=== PATIENT | female | born 1985 | race Caucasian/White ===

== ENCOUNTER 2019-04-15 10:25 | Inpatient (IN) | payer OTHER ==
[2019-04-15] MEDS ORDERED: CITRIC ACID/SODIUM CITRATE 30 ML UNIT-DOSE CUP PO ONE (11:29)
--- NOTE | 2019-04-15 11:35 | HP ---
Past Medical History - Admission Chief Complaint: Scheduled RLTCS History of Present Illness: 33yo @ 39wks here for scheduled RLTCS, BERNARDINO 04/19/2019, desires permanent sterilization No VB/LOF. No ctx. 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 No: Ascites, Cancer, Constipation, Crohn's Disease, Diverticulitis, Diverticulosis, Esophageal Varices, GERD, GI Bleed, Hemorrhoids, Hiatal Hernia, Inflamatory Bowel Disease, Irritable Bowel Disease, Pancreatitis, Peptic Ulcer Disease, Ulcerative Colitis Hepatobiliary: Yes: Cholelithiasis Renal/: Yes: UTI (rx po macrobid) Reproductive: No: Ectopic , Endometriosis, Fibroids, PID, Polycystic Ovary Syndrome, Postmenopausal, Other ...: 3 ...Para: 2 ...Term: 1 ...: 1 ...EDC by Dates: 04/19/19 Heme/Onc: Yes: Anemia Rheumatology: Yes: Rheumatoid Arthritis Endocrine: Yes: Hypothyroidism - Past Surgical History Past Surgical History: Yes: [facility], [facility] Hx Myomectomy: No Hx Transabdominal Cerclage: No - Smoking History Smoking history: Never smoked Have you smoked in the past 12 months: No - Alcohol/Substance Use Hx Alcohol Use: No History of Substance Use: reports: None - Social History Usual Living Arrangement: Yes: With Spouse Do you think of yourself as: Straight/Heterosexual ADL: Independent Occupation: unemployed History of Recent Travel: No Home Medications - Allergies Allergies/Adverse Reactions: Allergies Allergy/AdvReac Type Severity Reaction Status Date / Time No Known Allergies Allergy Verified 03/21/15 23:10 - Home Medications Home Medications: Ambulatory Orders Hydroxychloroquine Sulfate 200 mg PO DAILY 03/21/15 Levothyroxine [Synthroid -] 50 mcg PO DAILY 03/21/15 Prednisone 5 mg PO ASDIR 03/21/15 Bacitracin - [Bacitracin Topical Ointment -] 1 applic TP BID #1 tube 03/23/15 Clindamycin [Cleocin -] 300 mg PO TID #30 capsule 03/23/15 levoFLOXacin [Levaquin -] 500 mg PO DAILY #10 tablet 03/23/15 Review of Systems - Review of Systems Cardiovascular: denies: No Symptoms, Chest Pain, Edema, Palpitations, Shortness of Breath, Other Respiratory: denies: No Symptoms, Cough, Exercise Intolerance, Hemoptysis, Orthopnea, PND, Snoring, SOB, SOB on Exertion, Wheezing, Other Gastrointestinal: denies: No Symptoms, Abdominal Pain, Bloating, Constipation, Diarrhea, Dysphagia, Indigestion, Melena, Nausea, Rectal Bleeding, Vomiting, Vomiting Blood, Other Genitourinary: denies: No Symptoms, Burning, Discharge, Dysuria, Flank Pain, Frequency, Hematuria, Incontinence, Lesions, Menses, Pain, Testicular Mass, Testicular Pain, Testicular Swelling, Urgency, Vaginal Bleeding, Other Physical Exam - Maternity - Abdominal Exam/OB Number of Fetuses: Single Presentation: Vertex Contractions: No Category: I Accelerations: Non-Uniform - Vaginal Exam/OB Vaginal Bleediing: No - Physical Exam Edema: No Assessment/Plan 33yo @ 39+wks here for scheduled RTLCS, BTL Admit to L&D NPO, IVFs Ancef SCDs Mtz Risk of procedure reviewed, including bleeding, infection, injury (bladder, bowel, adnexa, vessels, nerves). All questions answered, consents signed. Marylu Chua MD
[2019-04-15] MEDS: ELECTROLYTE-148 SOLN 1,000 ML IV SCH ×2 (12:00→15:13)
[2019-04-15 12:42] VITALS: BMI 41.0
[2019-04-15] MEDS ORDERED: OXYTOCIN 20 UNITS in 0.9% NS 40 UNIT/2,000 ML INFUS.BAG IV ONE (12:50)
[2019-04-15] MEDS ORDERED: ceFAZolin SODIUM 1 GM VIAL ONE (12:52)
[2019-04-15] MEDS ORDERED: morphine SULFATE/PF 0.5 MG/ML (2cc Syringe - QUVA) ONE (12:52)
[2019-04-15] MEDS ORDERED: DEXAMETHASONE SOD PHOSPHATE 4 MG/1 ML VIAL ONE (13:35)
[2019-04-15] MEDS ORDERED: KETOROLAC TROMETHAMINE 30 MG/1 ML VIAL ONE (14:15)
[2019-04-15] MEDS: OXYTOCIN 20 UNITS in 0.9% NS 20 UNIT/1,000 ML INFUS.BAG IV SCH ×2 (14:20→21:00)
[2019-04-15] MEDS ORDERED: IBUPROFEN 800 MG/8 ML IJ IVPB PRN (14:24)
[2019-04-15] MEDS ORDERED: oxyCODONE HCL 5 MG TABLET PO PRN (14:24)
[2019-04-15] MEDS ORDERED: METHYLERGONOVINE MALEATE 0.2 MG/1 ML AMP IM PRN (14:24)
--- NOTE | 2019-04-15 14:24 | OP ---
Operative Note - Note: Operative Date: 04/15/19 Pre-Operative Diagnosis: 39 week , 2 prior C/S, desires elective Repeat C/S, desires permanent sterilization Operation: Repeat Low Transverse , Bilateral Tubal Ligation Findings: VFI, KARI, no nuchal, no meconium, Apgars 9/9. Weight pending. Normal tubes and ovaries bilaterally Post-Operative Diagnosis: Same as Pre-op Surgeon: Mell Chua Medical Sales Representative: Ernesto Robbins Anesthesia: Spinal Estimated Blood Loss (mls): 700 Drains, Volume Out (mls): 200 (clear urine) Operative Report Dictated: Yes
[2019-04-15] MEDS ORDERED: ONDANSETRON 4 MG/2 ML VIAL IVPUSH PRN (14:34)
--- NOTE | 2019-04-15 20:19 | OP ---
DATE OF OPERATION: 04/15/2019 PREOPERATIVE DIAGNOSIS: A 39-week , 2 prior sections, desires elective repeat section, desires permanent sterilization. PROCEDURE: Repeat low transverse section, bilateral tubal ligation. ANESTHESIA: Spinal. SURGEON: Mell Chua MD ENGINE TESTER: JHOANA Rangel ESTIMATED BLOOD LOSS: 700. INTRAVENOUS FLUIDS: Per Anesthesia record. URINE OUTPUT: Clear urine 200 mL at the end of the procedure. FINDINGS: Viable female , KARI position. No nuchal. No meconium. Apgars 9 and 9. Weight pending. Normal tubes and ovaries bilaterally. COMPLICATIONS: None. CONDITION: Stable to recovery room. NATURE OF THE PROCEDURE: After the appropriate consents were signed, patient was taken to the operating room. Spinal anesthesia was administered. She was placed in supine position. Mtz catheter had been inserted prior to entry into the operating room. The abdomen was prepped and draped in normal sterile fashion. Timeout was performed, confirming correct patient and procedure. Pfannenstiel incision was made through the prior incisions and carried through to the underlying layers until the fascia was nicked in the midline. The fascia was then extended laterally with the Riojas scissors. Attention was then paid to the inferior aspect of the fascia, which was grasped with Zechariah clamps, tented upwards, and the rectus muscle was dissected off bluntly and with the Riojas scissors. Attention was then paid to the superior aspect which was taken down in a similar fashion. The rectus muscles were sharply in the midline with the scalpel. Peritoneum was entered with the Metzenbaum scissors after transilluminating a clear space for entry. Peritoneum was then extended manually and with the Bovie. Bladder blade was then inserted. The bladder reflection was then nicked in the midline and extended laterally with the Metzenbaum scissors. Bladder flap was then created digitally. Bladder blade was reinserted. The uterus was then incised in a low transverse fashion. Clear amniotic fluid was noted. The infant's head was delivered without difficulty as were the remaining shoulder and body. The 's cord was then clamped and cut. The infant handed off to the awaiting pediatric staff. The uterus was cleared manually of the placenta and clot and debris. Uterus was then exteriorized. The hysterotomy was closed in a single, imbricating, vertical layer with a 0 Vicryl with good hemostasis. The patient's left hysterotomy had to be reinforced to control hemostasis. Attention was then paid to the adnexa for tubal sterilization. The patient's right fallopian tube was grasped with a [place] clamp in the isthmic portion. The tube was inspected down to its fimbriated edges and noted to be normal. Using the 0 plain suture, the tube was then ligated in the modified Sherrell fashion. The tubal stumps were cauterized with the cautery. Attention was then paid to the patient's left fallopian tube which was then also grasped with a [place] in the isthmic portion. Fimbriated edges appeared to be normal. The left fallopian tube was then suture ligated with a 0 plain in the modified Sherrell fashion. Tubal stumps were removed and then cauterized with good hemostasis. Hysterotomy was then re-inspected, noted to be hemostatic. The uterus was returned to the abdominal cavity. Bleeding was noted, and the uterus was then re-exteriorized again. The patient's right fallopian tube stump was noted to be bleeding and was made hemostatic with another 0 plain suture for good hemostasis. The left fallopian tube stump was re-inspected, noted to be hemostatic. Uterus was then returned back to the abdominal cavity. The hysterotomy was re-inspected, noted to be normal. The tubal stumps on both the right and left were re-inspected and noted to be hemostatic. The rectus muscles were reapproximated with a 2-0 chromic and a 0 Vicryl. The fascia was reapproximated with a 1-0 Vicryl. Subcutaneous layer was closed with a 2-0 plain. Skin was closed with a 3-0 Biosyn. Sponge, lap, needle counts were correct x3. The patient did receive Ancef at the start of the procedure. She was taken from the operating room to the recovery area in stable condition. MD KATHLEEN HICKS/[id number]
[2019-04-15] MEDS: ACETAMINOPHEN 325 MG TABLET (FP) PO PRN (23:49)
[2019-04-16 07:18] LABS: BASO % 0.3 % (0-2.0); EOS % 0.2 % (0-4.5); HEMATOCRIT 27.7 % (32.4-45.2); HEMOGLOBIN 9.5 GM/dL (10.7-15.3); LYMPH % 25.2 % (8-40); MCH 32.7 pg (25.7-33.7); MCHC 34.2 g/dl (32.0-36.0); MEAN CELL VOLUME 95.4 fl (80-96); MEAN PLT VOLUME 9.5 fl (7.5-11.1); MONO % 5.8 % (3.8-10.2); NEUT % 68.5 % (42.8-82.8); PLATELET COUNT 182 K/MM3 (134-434); RDW 15.1 % (11.6-15.6); WHITE BLOOD COUNT 8.7 K/mm3 (4.0-10.0)
--- NOTE | 2019-04-16 08:53 | PN ---
Post Progress Note - Subjective Subjective: Patient is doing well, ambulating, honeycutt in place, not yet ambulating, lochia decreased Post Day: 1 Type of Delivery: Repeat C/S Vital Signs: Vital Signs Temperature 98.6 F 04/16/19 06:00 Pulse Rate 76 04/16/19 06:00 Respiratory Rate 20 04/16/19 08:00 Blood Pressure 91/58 L 04/16/19 06:00 O2 Sat by Pulse Oximetry (%) 100 04/15/19 15:15 Breast Exam: Yes: Other (deferred) Uterus: Yes: Fundus Firm Incision: Yes: Sutures intact (dressing re ) Abdomen/GI: Yes: Abdomen soft Lochia: Yes: Serosa Lochia, amount: Moderate Extremities: Yes: Calves non-tender Activity: Ambulating, Other - Labs Labs: CBC WBC 8.7 K/mm3 (4.0-10.0) 04/16/19 06:40 RBC 2.90 M/mm3 (3.60-5.2) L 04/16/19 06:40 Hgb 9.5 GM/dL (10.7-15.3) L 04/16/19 06:40 Hct 27.7 % (32.4-45.2) L D 04/16/19 06:40 MCV 95.4 fl (80-96) 04/16/19 06:40 MCH 32.7 pg (25.7-33.7) 04/16/19 06:40 MCHC 34.2 g/dl (32.0-36.0) 04/16/19 06:40 RDW 15.1 % (11.6-15.6) 04/16/19 06:40 Plt Count 182 K/MM3 (134-434) 04/16/19 06:40 MPV 9.5 fl (7.5-11.1) 04/16/19 06:40 Absolute Neuts (auto) 6.0 K/mm3 (1.5-8.0) 04/16/19 06:40 Neutrophils % 68.5 % (42.8-82.8) 04/16/19 06:40 Lymphocytes % 25.2 % (8-40) 04/16/19 06:40 Monocytes % 5.8 % (3.8-10.2) 04/16/19 06:40 Eosinophils % 0.2 % (0-4.5) 04/16/19 06:40 Basophils % 0.3 % (0-2.0) 04/16/19 06:40 Nucleated RBC % 0 % (0-0) 04/16/19 06:40 Assessment/Plan POD # 1 in stable condition -Encourage ambulation -COntinue pp/post-op care
[2019-04-16] MEDS: ACETAMINOPHEN 325 MG TABLET (FP) PO PRN (10:13)
[2019-04-16] MEDS: IBUPROFEN 600 MG TABLET (FP) PO PRN (10:13)
--- NOTE | 2019-04-16 10:18 | PN ---
Progress Note (short form) - Note Progress Note: Anesthesia Post Op Note Pt seen s/p spinal for c/section Pt awake alert denies h/a, n/v Pt reports good pain control + puritis - instructed to request benedryl Ambulating well, no urinary retention VSS no apparent anesthesia complications David Edmondson.
[2019-04-16] MEDS ORDERED: BISACODYL 10 MG SUPP.RECT RC PRN (14:24)
[2019-04-17] MEDS: SIMETHICONE 80 MG TAB.CHEW (FP) PO PRN ×4 (01:54→20:16)
[2019-04-17] MEDS: IBUPROFEN 600 MG TABLET (FP) PO PRN ×4 (01:54→20:16)
[2019-04-17] MEDS: ACETAMINOPHEN 325 MG TABLET (FP) PO PRN ×4 (01:54→20:15)
--- NOTE | 2019-04-17 08:25 | PN ---
Post Progress Note - Subjective Subjective: c/o pain scale 6 or 7/10 voiding without problem bm not done Post Day: 2 Type of Delivery: Repeat C/S Vital Signs: Vital Signs Temperature 98.3 F 04/16/19 21:59 Pulse Rate 75 04/16/19 21:59 Respiratory Rate 18 04/16/19 21:59 Blood Pressure 107/54 L 04/16/19 21:59 O2 Sat by Pulse Oximetry (%) 100 04/15/19 15:15 Breast Exam: Yes: Soft, Other (BF ). No: Engorged Uterus: Yes: Fundus Firm, Fundus below umbilicus Incision: Yes: Sutures intact (steri strips intact , underneath dry blood stains seen ). No: Redness, Oozing Abdomen/GI: Yes: Abdomen soft, Passing flatus (bm not done ), Tolerating PO ( diet ). No: Abdominal Distention, Tender Lochia: Yes: Rubra Lochia, amount: Moderate Extremities: Yes: Calves non-tender Perineum: Yes: Intact Activity: Ambulating - Labs Labs: CBC WBC 8.7 K/mm3 (4.0-10.0) 04/16/19 06:40 RBC 2.90 M/mm3 (3.60-5.2) L 04/16/19 06:40 Hgb 9.5 GM/dL (10.7-15.3) L 04/16/19 06:40 Hct 27.7 % (32.4-45.2) L D 04/16/19 06:40 MCV 95.4 fl (80-96) 04/16/19 06:40 MCH 32.7 pg (25.7-33.7) 04/16/19 06:40 MCHC 34.2 g/dl (32.0-36.0) 04/16/19 06:40 RDW 15.1 % (11.6-15.6) 04/16/19 06:40 Plt Count 182 K/MM3 (134-434) 04/16/19 06:40 MPV 9.5 fl (7.5-11.1) 04/16/19 06:40 Absolute Neuts (auto) 6.0 K/mm3 (1.5-8.0) 04/16/19 06:40 Neutrophils % 68.5 % (42.8-82.8) 04/16/19 06:40 Lymphocytes % 25.2 % (8-40) 04/16/19 06:40 Monocytes % 5.8 % (3.8-10.2) 04/16/19 06:40 Eosinophils % 0.2 % (0-4.5) 04/16/19 06:40 Basophils % 0.3 % (0-2.0) 04/16/19 06:40 Nucleated RBC % 0 % (0-0) 04/16/19 06:40 Problem List - Problems (1) Status post section routine follow-up Code(s): Z39.2 - ENCOUNTER FOR ROUTINE FOLLOW-UP; Z98.891 - HISTORY OF UTERINE SCAR FROM PREVIOUS SURGERY Assessment/Plan stable anemia noted , pt counselled ct po care
[2019-04-17] MEDS: ELECTROLYTE-148 SOLN 1,000 ML IV SCH ×2 (20:00)
[2019-04-17] MEDS: OXYTOCIN 20 UNITS in 0.9% NS 20 UNIT/1,000 ML INFUS.BAG IV SCH (20:01)
[2019-04-18] MEDS ORDERED: oxyCODONE HCL 5 MG TABLET PO PRN (00:04)
[2019-04-18] MEDS: ACETAMINOPHEN 325 MG TABLET (FP) PO PRN ×2 (00:38→08:45)
[2019-04-18] MEDS: SIMETHICONE 80 MG TAB.CHEW (FP) PO PRN (00:39)
[2019-04-18] MEDS: IBUPROFEN 600 MG TABLET (FP) PO PRN ×2 (00:39→08:44)
[2019-04-18 08:42] LABS: BASO % 0.6 % (0-2.0); EOS % 2.6 % (0-4.5); HEMATOCRIT 26.2 % (32.4-45.2); LYMPH % 38.3 % (8-40); MCH 32.7 pg (25.7-33.7); MCHC 34.2 g/dl (32.0-36.0); MEAN CELL VOLUME 95.6 fl (80-96); MEAN PLT VOLUME 8.8 fl (7.5-11.1); MONO % 4.2 % (3.8-10.2); NEUT % 54.3 % (42.8-82.8); PLATELET COUNT 196 K/MM3 (134-434); RBC 2.74 M/mm3 (3.60-5.2); RDW 15.2 % (11.6-15.6)
--- NOTE | 2019-04-18 08:55 | PN ---
Post Progress Note - Subjective Subjective: Pain controlled with Oxy. +flatus. No fevers/chills. Ambulating w/o difficulty Type of Delivery: Repeat C/S Vital Signs: Vital Signs Temperature 98.4 F 04/17/19 22:00 Pulse Rate 71 04/17/19 22:00 Respiratory Rate 18 04/17/19 22:00 Blood Pressure 91/58 L 04/17/19 22:00 O2 Sat by Pulse Oximetry (%) 100 04/15/19 15:15 Uterus: Yes: Fundus below umbilicus Incision: Yes: Dressing dry and intact, Sutures intact Abdomen/GI: Yes: Abdomen soft Lochia: Yes: Rubra Lochia, amount: Small Extremities: Yes: Calves non-tender Perineum: Yes: Intact Activity: Ambulating - Labs Labs: CBC WBC 8.7 K/mm3 (4.0-10.0) 04/16/19 06:40 RBC 2.90 M/mm3 (3.60-5.2) L 04/16/19 06:40 Hgb 9.5 GM/dL (10.7-15.3) L 04/16/19 06:40 Hct 27.7 % (32.4-45.2) L D 04/16/19 06:40 MCV 95.4 fl (80-96) 04/16/19 06:40 MCH 32.7 pg (25.7-33.7) 04/16/19 06:40 MCHC 34.2 g/dl (32.0-36.0) 04/16/19 06:40 RDW 15.1 % (11.6-15.6) 04/16/19 06:40 Plt Count 182 K/MM3 (134-434) 04/16/19 06:40 MPV 9.5 fl (7.5-11.1) 04/16/19 06:40 Absolute Neuts (auto) 6.0 K/mm3 (1.5-8.0) 04/16/19 06:40 Neutrophils % 68.5 % (42.8-82.8) 04/16/19 06:40 Lymphocytes % 25.2 % (8-40) 04/16/19 06:40 Monocytes % 5.8 % (3.8-10.2) 04/16/19 06:40 Eosinophils % 0.2 % (0-4.5) 04/16/19 06:40 Basophils % 0.3 % (0-2.0) 04/16/19 06:40 Nucleated RBC % 0 % (0-0) 04/16/19 06:40 Assessment/Plan 33yo s/p RLTCS, BTL POD#3 Routine PP care Labs reviewed PO pain control D/C to home Marylu Chua MD
[2019-04-18 18:21] VITALS: BP 96/60; PULSE 70; TEMP 98.2
[2019-04-18] MEDS ORDERED: SENNOSIDES 8.6MG TABLET (FP) PO SCH (22:00)
--- NOTE | 2019-04-23 17:28 | PATH ---
Surgical Pathology Report Patient Name: MARTINE DAVIS [facility]. Rec. #: [id number] /Age/Gender: 1985 (Age: 33) / F Account: [id number] Location: [facility] OBS/CONTENT ANALYST Taken: 04/15/2019 Received: 04/16/2019 Reported: 04/23/2019 Physicians: Mell Chua Specimen(s) Received A: PLACENTA B: FALLOPIAN TUBE RT PORTION C: FALLOPIAN TUBE LT PORTION Clinical History , previous and bilateral tubal ligation, term Final Diagnosis A. PLACENTA: THIRD TRIMESTER PLACENTA. TRIVASCULAR CORD. MEMBRANES WITH NO DIAGNOSTIC ABNORMALITIES. B. PORTION OF RIGHT FALLOPIAN TUBE: COMPLETE CROSS SECTION OF THE FALLOPIAN TUBE LUMEN IDENTIFIED. C. PORTION OF LEFT FALLOPIAN TUBE: COMPLETE CROSS SECTION OF THE FALLOPIAN TUBE LUMEN IDENTIFIED. Electronically Signed Juma Cordova M.D. Gross Description A. The specimen is received fresh labeled placenta and is a 516 gram, 16.0 x 13.5 x 3.3 cm. placenta with attached membranes and umbilical cord. The attached membranes are miller, translucent with focal opacities and insert marginally. The umbilical cord measures 29 cm. in length and averages 1.2 cm. in diameter. The cord inserts eccentrically, 3.5 cm. to the nearest margin. No true knots or strictures are identified. Cut surface of the umbilical cord reveals 3 vessels. The surface is mace blue with moderate fibrin deposition and appropriate caliber vessels. The maternal surface is red-brown with focal defects. Sectioning reveals red-brown, spongy parenchyma. No lesions are identified. Hydroelectric Systems Technician sections are submitted in three cassettes as follows: 1- membrane rolls and umbilical cord; 2-3- full thickness sections of placenta. B. Received in formalin labeled "right portion of fallopian tube," is a 0.5 cm in length portion of fallopian tube. No fimbria are present. The outer surface is miller-hunt and smooth. Sectioning reveals an unremarkable lumen. The specimen is bisected and entirely submitted in one cassette. C. Received in formalin labeled "left portion of fallopian tube," is a 0.9 cm in length portion of fallopian tube. No fimbria are present. The outer surface is miller-hunt and smooth. Sectioning reveals an unremarkable lumen. The specimen is trisected and entirely submitted in one cassette. 04/22/2019 [facility]04/22/2019
== END 2019-04-18 11:10 | disposition home or self-care (01) | DRG 540 ==
LOC: JLDR 10:25 → J3W 16:27
PROVIDERS: ADMIT Obstetrics & Gynecology; ATTEND Obstetrics & Gynecology
PROC: 10D00Z1 Extraction of Products of Conception, Low, Open Approach (ICD-10-PCS; principal; 2019-04-15)
PROC: 0UB70ZZ Excision of Bilateral Fallopian Tubes, Open Approach (ICD-10-PCS; 2019-04-15)
DX: O34.211 Maternal care for low transverse scar from previous cesarean delivery (principal); N85.8 Other specified noninflammatory disorders of uterus; Z3A.39 39 weeks gestation of pregnancy; Z30.2 Encounter for sterilization; O99.02 Anemia complicating childbirth; Z37.0 Single live birth
CPT/HCPCS: 36415; 85025; 88302-TC; 88307-TC